=== PATIENT | female | born 1965 | race Caucasian/White ===

== ENCOUNTER → 2019-01-12 | Outpatient (CLI) | payer MEDICAID | LOC: COL.RAD 08:30 → EDBD 11:30 | DX: I74.10 Embolism and thrombosis of unspecified parts of aorta (principal); J43.9 Emphysema, unspecified; N26.1 Atrophy of kidney (terminal); N28.1 Cyst of kidney, acquired; N28.89 Other specified disorders of kidney and ureter | CPT/HCPCS: Q9967 ==

== ENCOUNTER 2019-10-20 20:07 | Emergency (ER) | payer MEDICAID ==
[~2019-10-20] VITALS: Ht 167.6 cm; Wt 90.9 kg
[2019-10-20 22:24] LABS: INR 10.4 (0.8-3.0); PROTHROMBIN TIME 119.6 SECONDS (9.7-12.8)
[2019-10-20 22:40] LABS: BASO # 0.1 (0.0-0.2); BASO % 0.4 % (0.0-2.0); EOS # 0.2 (0.0-0.7); EOS % 1.5 % (0-4.0); GRAN # 8.7 (1.4-6.5); GRAN % 60.8 % (42.2-75.2); HEMOGLOBIN 17.1 g/dl (12.5-16.0); LYMPH # 3.8 (1.2-3.4); LYMPH % 26.9 % (20.0-51.0); MEAN CELL VOLUME 89 fl (80.0-100.0); MEAN CORPUSCULAR HEMOGLOBIN 31 pg (27.0-31.0); MEAN CORPUSCULAR HGB CONC 35 g/dl (33.0-37.0); MEAN PLATELET VOLUME 11.3 fl (7.4-10.4); MONO # 1.4 (0.1-0.6); MONO % 9.9 % (1.7-9.3); PLATELET COUNT 283 K/mm3 (130-400); REDCELL DISTRIBUTION WIDTH-CV 13.3 % (11.5-14.5)
[2019-10-20 22:52] LABS: ALBUMIN 4.5 gm/dL (3.5-5.0); BILIRUBIN,TOTAL 0.6 mg/dL (0.0-1.0); CALCIUM 9.5 mg/dL (8.4-10.2); POTASSIUM 3.1 mmol/L (3.4-5.0); TOTAL PROTEIN 8.6 gm/dL (6.4-8.2)
[2019-10-20 23:25] VITALS: BP 138/88; PULSE 85; TEMP 97.8
== END 2019-10-20 23:26 | disposition home or self-care (01) ==
LOC: COL.ER 20:07
PROVIDERS: Emergency Medicine
DX: M25.572 Pain in left ankle and joints of left foot (principal); R79.1 Abnormal coagulation profile; E78.5 Hyperlipidemia, unspecified; Z86.718 Personal history of other venous thrombosis and embolism; Z79.01 Long term (current) use of anticoagulants; X50.1XXA Overexertion from prolonged static or awkward postures, initial encounter

== ENCOUNTER → 2019-11-01 | Outpatient (CLI) | payer MEDICAID | LOC: COL.RAD 12:51 | DX: S82.892A Other fracture of left lower leg, initial encounter for closed fracture (principal) ==

== ENCOUNTER → 2020-01-06 | Outpatient (CLI) | payer MEDICAID | LOC: MC.RAD 12:45 | DX: N63.20 Unspecified lump in the left breast, unspecified quadrant (principal) ==

== ENCOUNTER → 2020-01-11 | Outpatient (CLI) | payer MEDICAID | LOC: MC.RAD 08:00 | DX: D24.2 Benign neoplasm of left breast (principal); Z98.82 Breast implant status ==

== ENCOUNTER → 2021-08-23 | Outpatient (CLI) | payer MEDICAID | LOC: MC.RAD 10:45 | DX: N63.20 Unspecified lump in the left breast, unspecified quadrant (principal) ==

== ENCOUNTER → 2022-08-29 | Outpatient (CLI) | payer MEDICAID | LOC: DIA.ED 08:16 | DX: E11.9 Type 2 diabetes mellitus without complications (principal); E78.5 Hyperlipidemia, unspecified; I10 Essential (primary) hypertension | CPT/HCPCS: G0108 ==

== ENCOUNTER → 2023-05-05 | Outpatient (CLI) | payer MEDICAID | LOC: COL.RAD 04-21 13:00 | DX: R25.1 Tremor, unspecified (principal); R41.89 Other symptoms and signs involving cognitive functions and awareness ==